=== PATIENT | male | born 1940 | race African-American/Black ===

== ENCOUNTER 2018-10-21 15:47 | Emergency (ER) | payer OTHER ==
[~2018-10-21] VITALS: Ht 177.8 cm; Wt 78.3 kg
[2018-10-21] MEDS ORDERED: LABETALOL 5MG/ML SYR 20 MG/4 ML SYRINGE IV ONE ×3 (16:00→23:00)
[2018-10-21 16:21] LABS: HEMATOCRIT. 42.4 % (42.0-52.0); HEMOGLOBIN. 13.8 g/dL (14.0-18.0); MEAN CORPUSCULAR VOLUME 89.1 fL (80.0-94.0); MEAN PLATELET VOLUME 7.8 fl (7.4-10.4); PLATELET 270 x1000/uL (130-400); RED BLOOD CELL COUNT 4.75 mill/uL (4.7-6.1); RED CELL DISTRIBUTION WIDTH 14.7 % (11.6-14.6)
[2018-10-21 16:25] LABS: CHLORIDE 105 mEq/L (98-107)
[2018-10-21 16:27] LABS: PARTIAL THROMBOPLASTIN TIME 28.2 sec (23.4-31.0); PROTHROMBIN TIME 10.1 sec (9.1-11.1)
[2018-10-21 16:30] LABS: ETHANOL BLOOD < 10 mg/dL
[2018-10-21 16:32] LABS: LDL CHOLESTEROL 82 mg/dL (5-100)
[2018-10-21 16:34] LABS: CREATINE KINASE 138 IU/L (39-308)
[2018-10-21] MEDS ORDERED: NICARDIPINE 50 MG in SODIUM CHLORIDE 0.9% 230 ML IV STA (16:40)
[2018-10-21 16:52] LABS: PLATELET ESTIMATE NORMAL
[2018-10-21] MEDS: NICARDIPINE 40MG/200ML PREMIX 200 ML IV STA ×2 (17:07→17:12)
[2018-10-21] MEDS ORDERED: NICARDIPINE 40MG/200ML PREMIX 200 ML IV ONE (17:07)
[2018-10-21] MEDS: NICARDIPINE 50 MG in SODIUM CHLORIDE 0.9% 230 ML IV STA ×2 (17:07→17:09)
[2018-10-21] MEDS ORDERED: ASPIRIN 325MG EC TABLET PO ONE (17:15)
[2018-10-21] MEDS ORDERED: ATOR-2 PO (17:31)
[2018-10-21] MEDS ORDERED: CLON-457 PO (17:32)
[2018-10-21] MEDS ORDERED: CALC0.253 PO (17:32)
[2018-10-21] MEDS ORDERED: MINO2.5T2 PO (17:32)
[2018-10-21] MEDS ORDERED: CLOP75TA33 PO (17:33)
[2018-10-21] MEDS ORDERED: TAMS0.4C31 PO (17:33)
[2018-10-21] MEDS ORDERED: PYRI60TA10 PO (17:34)
[2018-10-21] MEDS ORDERED: SPIR25TA6 PO (17:34)
[2018-10-21] MEDS ORDERED: FURO20TA4 PO (17:35)
[2018-10-21] MEDS ORDERED: METO-385 PO (17:35)
[2018-10-21] MEDS ORDERED: AMLO10TA80 PO (17:36)
[2018-10-21] MEDS ORDERED: METH1TAB47 MT (17:36)
[2018-10-21] MEDS ORDERED: NITR0.4T49 SL (17:36)
[2018-10-21 18:57] LABS: CLARITY URINE CLEAR (CLEAR); COLOR URINE YELLOW (YELLOW); KETONES URINE NEGATIVE (NEGATIVE); LEUKOCYTE ESTERASE URINE NEGATIVE (NEGATIVE); NITRITE URINE NEGATIVE (NEGATIVE); OCCULT BLOOD URINE NEGATIVE (NEGATIVE); PH URINE 6.5 (4.5-8.0); PROTEIN URINE NEGATIVE (NEGATIVE); SPECIFIC GRAVITY URINE 1.005 (1.005-1.030); UROBILINOGEN URINE 0.2 E.U./dL (0.2-1.0)
[2018-10-21 19:19] LABS: *AMPHETAMINES SCREEN URINE NEGATIVE (NEGATIVE); *BARBITURATES SCREEN URINE NEGATIVE (NEGATIVE); *BENZODIAZEPINES SCREEN URINE NEGATIVE (NEGATIVE); *COCAINE SCREEN URINE NEGATIVE (NEGATIVE); CANNABINOID URINE SCREEN NEGATIVE (NEGATIVE)
[2018-10-21 19:20] LABS: METHADONE URINE SCREEN NEGATIVE (NEGATIVE); OPIATES URINE SCREEN NEGATIVE (NEGATIVE); PHENCYCLIDINE URINE SCREEN NEGATIVE (NEGATIVE)
[2018-10-21 23:12] VITALS: BP 186/110
== END 2018-10-21 23:23 | disposition short-term general hospital (02) ==
LOC: ER 15:47
DX: I63.9 Cerebral infarction, unspecified (principal); I16.1 Hypertensive emergency; I11.0 Hypertensive heart disease with heart failure; I50.9 Heart failure, unspecified; N28.9 Disorder of kidney and ureter, unspecified; Z95.0 Presence of cardiac pacemaker; Z86.73 Personal history of transient ischemic attack (TIA), and cerebral infarction without residual deficits
CPT/HCPCS: 36415; 70450; 71045; 80053; 80305; 80320; 81003; 82550; 82962; 83721; 83735; 83880; 84443; 84484; 85025; 85610; 85730; 93005; 96365; 96375; 96376; 99291; J3490; J7050; G0480